=== PATIENT | male | born 1940 | race Caucasian/White ===

== ENCOUNTER 2018-03-30 22:04 | Inpatient (IN) | payer OTHER ==
[~2018-03-30] VITALS: Ht 177.8 cm; Wt 82.6 kg
[~2018-03-30 22:04] MED LIST: AMARYL 2 MG PO; AMLODIPINE BES2.5 MG; ATORVASTATIN CA40 MG; BUDESONIDE0.5 MG/2 M; CIPRO500 MG; CLARITIN PO; COUMAdin PO; Cordarone 200 MG TAB PO; DIOVAN40 MG; FUROSEMIDE40 MG; HumaLOG 100 UNIT/1 ML (3ML) SUBCUTANEO; IOPHEN DM-100 MG/5 M PO; LACTULOSE PO; LUBRIDERM LOTION TP; Lipitor 40MG PO; MERREM IV; MOM PO; MONTELUKAST SOD10 MG; MOXIFLOXACIN 400 MG IV; NEURONTIN300 MG; Norvasc 2.5 MG TAB PO; PERFOROMIS20 MCG/2 M; POM (MEDICAMENTO EN PHA) PO; PROCRIT 10000 UNIT SUBCUTANEO; Pulmicort 0.5 MG/2 ML AMPUL IH; SPIRONOLACTONE25 MG; SUSTIVA 600 MG PO; Singulair 10MG PO; TRUVADA 200 MG-300 MG TABLET PO; Toprol Xl 50MG TAB PO; VANCOCIN 1GM/VIALMATE IV; VANCOCIN HCL 5 MG/ML REDILUIDO IV; VANCOCIN HCL 500 MG IV; Xopenex 0.63 MG/3 ML SOLUTION IH
[2018-03-30] MEDS ORDERED: ATORVASTATIN CA10 MG (22:13)
[2018-03-30] MEDS ORDERED: CETIRIZINE HCL10 MG (22:13)
[2018-03-30] MEDS ORDERED: DAFLONEX-XL TA1 EACH (22:13)
[2018-03-30] MEDS ORDERED: FUROSEMIDE40 MG (22:14)
[2018-03-30] MEDS ORDERED: TRIGLIDE160 MG (22:14)
[2018-03-30] MEDS ORDERED: IPRAT-ALBUT 0.5-3 ML (22:15)
[2018-03-30] MEDS ORDERED: JANUVIA25 MG (22:15)
[2018-03-30] MEDS ORDERED: GABAPENTIN100 MG (22:15)
[2018-03-30] MEDS ORDERED: MECLIZINE HCL25 MG (22:16)
[2018-03-30] MEDS ORDERED: LIPO-FLAVONOID1 EACH (22:16)
[2018-03-30] MEDS ORDERED: STIOLTO RESPIMAT4 GM (22:17)
[2018-03-30] MEDS ORDERED: PENTOXIFYLLINE400 MG (22:17)
[2018-03-30] MEDS ORDERED: SPIRIVA RESPIMAT4 G1 (22:17)
[2018-03-30] MEDS ORDERED: TAMS0.4C (22:18)
[2018-03-30] MEDS ORDERED: TRUVADA 200 MG1 EACH (22:18)
[2018-03-30] MEDS ORDERED: SUSTIVA50 MG (22:18)
[2018-03-30] MEDS ORDERED: ELIQUIS5 MG (22:27)
[2018-03-30] MEDS ORDERED: LEVAQUIN750 MG (22:29)
[2018-04-01] MEDS ORDERED: TRUVADA 200 MG1 EACH PO (18:04)
== END 2018-04-16 16:51 | disposition home or self-care (01) | DRG 975 ==
LOC: ER 22:04 → SEC-K 03-31 12:45 → MEDJ 03-31 12:45
PROVIDERS: ADMIT Internal Medicine
PROC: 4A033R1 Measurement of Arterial Saturation, Peripheral, Percutaneous Approach (ICD-10-PCS; 2018-03-31)
PROC: 8E0ZXY6 Isolation (ICD-10-PCS; 2018-03-31)
PROC: 4A12X4Z Monitoring of Cardiac Electrical Activity, External Approach (ICD-10-PCS; 2018-03-31)
PROC: 3E0F7GC Introduction of Other Therapeutic Substance into Respiratory Tract, Via Natural or Artificial Opening (ICD-10-PCS; 2018-03-31)
PROC: B922ZZZ Computerized Tomography (CT Scan) of Paranasal Sinuses (ICD-10-PCS; principal; 2018-04-01)
PROC: BW24ZZZ Computerized Tomography (CT Scan) of Chest and Abdomen (ICD-10-PCS; 2018-04-01)
DX: J10.08 Influenza due to other identified influenza virus with other specified pneumonia (principal); L03.116 Cellulitis of left lower limb; B20 Human immunodeficiency virus [HIV] disease; I25.810 Atherosclerosis of coronary artery bypass graft(s) without angina pectoris; D68.312 Antiphospholipid antibody with hemorrhagic disorder; D68.311 Acquired hemophilia; M86.8X6 Other osteomyelitis, lower leg; B37.0 Candidal stomatitis; B96.3 Hemophilus influenzae [H. influenzae] as the cause of diseases classified elsewhere; J44.1 Chronic obstructive pulmonary disease with (acute) exacerbation; Z79.4 Long term (current) use of insulin; Z95.1 Presence of aortocoronary bypass graft; Z87.891 Personal history of nicotine dependence; E11.51 Type 2 diabetes mellitus with diabetic peripheral angiopathy without gangrene; R09.02 Hypoxemia; E11.22 Type 2 diabetes mellitus with diabetic chronic kidney disease; I12.9 Hypertensive chronic kidney disease with stage 1 through stage 4 chronic kidney disease, or unspecified chronic kidney disease; N18.2 Chronic kidney disease, stage 2 (mild); E11.65 Type 2 diabetes mellitus with hyperglycemia; D51.8 Other vitamin B12 deficiency anemias; J14 Pneumonia due to Hemophilus influenzae

== ENCOUNTER 2023-02-07 11:01 | Outpatient (CLI) | payer OTHER ==
[~2023-02-07 11:01] MED LIST changes: +ATORVASTATIN CA10 MG; +CETIRIZINE HCL10 MG; +DAFLONEX-XL TA1 EACH; +ELIQUIS5 MG; +GABAPENTIN100 MG; +IPRAT-ALBUT 0.5-3 ML; +JANUVIA25 MG; +LEVAQUIN750 MG; +LIPO-FLAVONOID1 EACH; +MECLIZINE HCL25 MG; +PENTOXIFYLLINE400 MG; +SPIRIVA RESPIMAT4 G1; +STIOLTO RESPIMAT4 GM; +SUSTIVA50 MG; +TAMS0.4C; +TRIGLIDE160 MG; +TRUVADA 200 MG1 EACH; +TRUVADA 200 MG1 EACH PO
== END 2023-02-07 11:08 | disposition home or self-care (01) ==
LOC: RAD 11:01
PROVIDERS: ATTEND Internal Medicine
DX: J44.9 Chronic obstructive pulmonary disease, unspecified (principal); Z16.13 Resistance to carbapenem; Z88.0 Allergy status to penicillin; Z88.1 Allergy status to other antibiotic agents; Z88.2 Allergy status to sulfonamides

== ENCOUNTER → 2024-12-05 | Emergency (ER) | payer OTHER ==
[~2024-12-05] VITALS: Ht 172.7 cm; Wt 87.1 kg
[~2024-12-05] MED LIST changes: +ELIQUIS5 M1 PO; +KETOROLAC TROMETHAMINE 30 MG VIAL IV ONE; +KETOROLAC TROMETHAMINE 30 MG VIAL ONE
[2024-12-05 12:16] LABS: BASO % 0.5 % (0.1-1.2); EOS # 0.00 (0.04-0.54); EOS % 0.0 % (0.7-7.0); LYMPH # 1.35 (1.18-3.74); LYMPH % 16.5 % (19.3-53.1); MEAN PLATELET VOLUME 9.60 fl (9.4-12.4); MONO # 0.52 (0.24-0.82); MONO % 6.3 % (4.7-12.5); NEUT # 6.23 (1.56-6.13); NEUT % 76.0 % (34.0-71.1); RED CELL DISTRIBUTION WIDTH 13.8 % (11.6-14.4)
[2024-12-05 12:58] LABS: BUN CREA RATIO 9.0 (7.0-25.0); CREATININE SERUM 3.75 mg/dL (0.70-1.30); GFR 15.45; GLUCOSE FASTING 129.0 mg/dL (65-100); OSMOLALITY SERUM 298.0 MOSM/KG (275-295)
[2024-12-06 04:23] LABS: URINE APPEARANCE Clear; URINE BILIRRUBIN Negative (NEGATIVE); URINE BLOOD Negative; URINE COLOR Yellow; URINE GLUCOSE Negative (NEGATIVE); URINE KETONE Trace (NEGATIVE); URINE LEUKOCYTE Negative; URINE NITRATE Negative; URINE PROTEIN Negative (NEGATIVE); URINE UROBILINOGEN 1.0 E.U./dl
[2024-12-06 04:27] LABS: URINE BACTERIA 9.5 uL (0.0-1933); URINE EPITHELIAL CELLS 2.3 uL (0.0-38.8); URINE WBC 1.9 uL (0.0-23.2)
[2024-12-06 05:44] LABS: URINE CAST 0.43 uL (0.0-1.40); URINE RBC 1.0 uL (0.0-20.8)
== END | disposition designated cancer center or children's hospital (05) ==
LOC: ER 10:49
PROVIDERS: Emergency Medicine
DX: S79.811A Other specified injuries of right hip, initial encounter (principal); W19.XXXA Unspecified fall, initial encounter; Y93.89 Activity, other specified; Y92.89 Other specified places as the place of occurrence of the external cause; Y99.8 Other external cause status; I10 Essential (primary) hypertension; Z88.0 Allergy status to penicillin; Z88.1 Allergy status to other antibiotic agents; Z88.2 Allergy status to sulfonamides
CPT/HCPCS: 71046; 73502; 96365; 99285; J1885

== ENCOUNTER 2025-02-11 11:41 | Inpatient (IN) | payer OTHER ==
[~2025-02-11] VITALS: Ht 167.6 cm; Wt 65.8 kg
[~2025-02-11 11:41] MED LIST changes: -KETOROLAC TROMETHAMINE 30 MG VIAL IV ONE; -KETOROLAC TROMETHAMINE 30 MG VIAL ONE
[2025-02-11] MEDS ORDERED: VANCOMYCIN HCL 1,000 MG VIAL IV ONE (12:15)
[2025-02-11] MEDS ORDERED: FAMOtidine 10 MG/ML (4ML VIAL) IV SCH (12:15)
[2025-02-11] MEDS ORDERED: LEVALBUTEROL HCL 1.25 MG/3 ML SOLUTION IH SCH (12:16)
--- NOTE | 2025-02-11 12:24 | NUR ---
PACIENTE MASCULINO, S/V EN PARAMETROS NORMNALES, C/C ULCERA PIE DERECHO, SE UBICA EN CAMA 11 PARA SER EVALUADO.
[2025-02-11] MEDS ORDERED: DEXTROSE 50 % IN WATER 0.5 G/ML DISP.SYRIN IV PRN (12:30)
[2025-02-11] MEDS ORDERED: 0.9 % SODIUM CHLORIDE 1,000 ML IV SCH (12:30)
[2025-02-11] MEDS ORDERED: INSULIN LISPRO 1,000 UNIT/10 ML UNITS SUBCUTANEO PRN (12:30)
[2025-02-11] MEDS ORDERED: VANCOMYCIN HCL 1,000 MG VIAL ONE (14:57)
[2025-02-11] MEDS ORDERED: FAMOTIDINE/PF 20 MG/2 ML VIAL ONE (14:57)
[2025-02-11 15:41] LABS: BASO % 0.4 % (0.1-1.2); EOS # 0.05 (0.04-0.54); EOS % 0.5 % (0.7-7.0); LYMPH # 2.22 (1.18-3.74); LYMPH % 21.2 % (19.3-53.1); MEAN PLATELET VOLUME 10.00 fl (9.4-12.4); MONO # 0.80 (0.24-0.82); MONO % 7.7 % (4.7-12.5); NEUT # 7.25 (1.56-6.13); NEUT % 69.3 % (34.0-71.1); RED CELL DISTRIBUTION WIDTH 15.9 % (11.6-14.4)
[2025-02-11 15:53] VITALS: BP 130/80
[2025-02-11 15:59] LABS: INR 1.16
[2025-02-11 16:13] LABS: ALT/SGPT 20.0 U/L (12-78); AST/SGOT 12.0 U/L (15-37); BILIRUBIN TOTAL 0.43 mg/dL (0.3-1.2); BUN CREA RATIO 7.0 (7.0-25.0); CREATININE SERUM 3.4 mg/dL (0.70-1.30); GFR 17.3; GLOBULINA 4.3 G/DL (2.4-3.5); GLUCOSE FASTING 145.0 mg/dL (65-100); OSMOLALITY SERUM 288.0 MOSM/KG (275-295)
[2025-02-11] MEDS ORDERED: ACETAMINOPHEN 325 MG TABLET PO PRN (16:30)
[2025-02-11] MEDS ORDERED: IPRATROPIUM BROMIDE 0.5 MG/2.5 ML AMPUL.NEB IH SCH (17:00)
[2025-02-11] MEDS ORDERED: ACETAMINOPHEN 500 MG GEL..CAP PO PRN (18:30)
[2025-02-11 20:21] LABS: URINE APPEARANCE Turbid; URINE BILIRRUBIN Negative (NEGATIVE); URINE BLOOD Large; URINE COLOR Yellow; URINE KETONE Negative (NEGATIVE); URINE LEUKOCYTE Large; URINE NITRATE Negative; URINE UROBILINOGEN 0.2 E.U./dl
[2025-02-11 20:25] LABS: URINE BACTERIA 4905.5 uL (0.0-1933); URINE CAST 4.83 uL (0.0-1.40); URINE EPITHELIAL CELLS 5.0 uL (0.0-38.8); URINE RBC 424.7 uL (0.0-20.8); URINE WBC 823.5 uL (0.0-23.2)
[2025-02-11 20:40] LABS: URINE GLUCOSE 250 MG/DL (NEGATIVE); URINE PROTEIN 100 (NEGATIVE); URINE YEAST MANY /hpf
[2025-02-11 21:53] VITALS: BP 181/72
[2025-02-12 03:29] VITALS: BP 145/62; O2SAT 96
[2025-02-12 08:40] VITALS: BP 150/72; O2SAT 97
[2025-02-12] MEDS ORDERED: FAMOTIDINE/PF 20 MG/2 ML VIAL IV SCH (09:00)
[2025-02-12] MEDS ORDERED: LINEZOLID IN DEXTROSE 5% 300 ML IV SCH (09:00)
[2025-02-12] MEDS ORDERED: AZTREONAM 1,000 MG VIAL IV SCH (09:00)
[2025-02-12] MEDS ORDERED: VANCOMYCIN HCL 1,000 MG VIAL IV NR (16:00)
[2025-02-12] MEDS ORDERED: MEROPENEM 500 MG/VIAL VIAL IV SCH (17:00)
[2025-02-12 18:47] VITALS: BP 130/66
[2025-02-13 04:30] VITALS: BP 133/56; O2SAT 96
[2025-02-13] MEDS ORDERED: LEVALBUTEROL HCL 1.25 MG/3 ML SOLUTION IH SCH (06:00)
[2025-02-13] MEDS ORDERED: IPRATROPIUM BROMIDE 0.5 MG/2.5 ML AMPUL.NEB IH SCH (06:00)
[2025-02-13 08:52] VITALS: BP 131/78; O2SAT 96
[2025-02-13] MEDS ORDERED: VANCOMYCIN HCL 500 MG VIAL IV SCH (09:00)
[2025-02-13 18:07] VITALS: BP 113/73
[2025-02-14 02:51] VITALS: BP 114/62; O2SAT 97
[2025-02-14 06:18] LABS: BASO % 0.6 % (0.1-1.2); EOS # 0.00 (0.04-0.54); EOS % 0.0 % (0.7-7.0); LYMPH # 2.31 (1.18-3.74); LYMPH % 23.2 % (19.3-53.1); MEAN PLATELET VOLUME 10.70 fl (9.4-12.4); MONO # 0.68 (0.24-0.82); MONO % 6.8 % (4.7-12.5); NEUT # 6.85 (1.56-6.13); NEUT % 68.7 % (34.0-71.1); RED CELL DISTRIBUTION WIDTH 15.9 % (11.6-14.4)
[2025-02-14 07:01] LABS: ALT/SGPT 16.0 U/L (12-78); AST/SGOT 13.0 U/L (15-37); BILIRUBIN TOTAL 0.36 mg/dL (0.3-1.2); BUN CREA RATIO 7.0 (7.0-25.0); CREATININE SERUM 3.71 mg/dL (0.70-1.30); GFR 15.64; GLOBULINA 3.6 G/DL (2.4-3.5); GLUCOSE FASTING 91.0 mg/dL (65-100); OSMOLALITY SERUM 282.0 MOSM/KG (275-295)
[2025-02-14 09:11] VITALS: BP 115/64; O2SAT 96
[2025-02-14 20:52] VITALS: BP 127/66; O2SAT 97
[2025-02-15 01:04] VITALS: BP 100/50; O2SAT 98
[2025-02-15 10:05] VITALS: BP 144/62; O2SAT 97
[2025-02-15 19:00] VITALS: BP 144/57; O2SAT 98
[2025-02-16 03:28] VITALS: BP 148/74; O2SAT 95
[2025-02-16] MEDS ORDERED: VANCOMYCIN HCL 500 MG VIAL IV SCH (09:00)
[2025-02-16 10:41] VITALS: BP 171/64; O2SAT 96
[2025-02-16 20:13] VITALS: BP 122/70; O2SAT 96
[2025-02-17 03:14] VITALS: BP 160/76; O2SAT 95
[2025-02-17 10:11] VITALS: BP 101/60; O2SAT 97
[2025-02-17 16:07] LABS: BASO % 0.5 % (0.1-1.2); EOS # 0.09 (0.04-0.54); EOS % 1.0 % (0.7-7.0); LYMPH # 2.25 (1.18-3.74); LYMPH % 24.2 % (19.3-53.1); MEAN PLATELET VOLUME 10.30 fl (9.4-12.4); MONO # 0.74 (0.24-0.82); MONO % 8.0 % (4.7-12.5); NEUT # 6.08 (1.56-6.13); NEUT % 65.5 % (34.0-71.1); RED CELL DISTRIBUTION WIDTH 15.7 % (11.6-14.4)
[2025-02-17 16:42] LABS: ALT/SGPT 13.0 U/L (12-78); AST/SGOT 12.0 U/L (15-37); BILIRUBIN TOTAL 0.36 mg/dL (0.3-1.2); BUN CREA RATIO 6.0 (7.0-25.0); CREATININE SERUM 3.74 mg/dL (0.70-1.30); GFR 15.5; GLOBULINA 3.6 G/DL (2.4-3.5); GLUCOSE FASTING 121.0 mg/dL (65-100); OSMOLALITY SERUM 280.0 MOSM/KG (275-295)
[2025-02-17] MEDS ORDERED: SOD FERRIC GLUC COMPLX/SUCROSE 62.5 MG in 0.9 % SODIUM CHLORIDE 50 ML IV SCH (17:00)
[2025-02-17] MEDS ORDERED: CYANOCOBALAMIN (VITAMIN B-12) 1,000 MCG/ML VIAL IM SCH (17:00)
[2025-02-17] MEDS ORDERED: FOLIC ACID 1 MG TABLET PO SCH (17:00)
[2025-02-17 17:26] VITALS: BP 126/80; O2SAT 98
[2025-02-18 02:58] VITALS: BP 149/67; O2SAT 95
[2025-02-18 08:26] VITALS: BP 134/69; O2SAT 97
[2025-02-18 20:24] VITALS: BP 120/55; O2SAT 95
[2025-02-19 03:21] VITALS: BP 133/55; O2SAT 96
[2025-02-19 09:04] VITALS: BP 126/72; O2SAT 97
== END 2025-02-19 13:47 | disposition designated cancer center or children's hospital (05) | DRG 622 ==
LOC: ER 11:41 → MEDJ 16:51
PROVIDERS: General Practice; Internal Medicine Infectious Disease; Internal Medicine Nephrology; ADMIT Internal Medicine; ATTEND Internal Medicine
PROC: 0JBQ0ZZ Excision of Right Foot Subcutaneous Tissue and Fascia, Open Approach (ICD-10-PCS; principal; 2025-02-11)
PROC: 0JBQ0ZZ Excision of Right Foot Subcutaneous Tissue and Fascia, Open Approach (ICD-10-PCS; 2025-02-12)
PROC: 3E0F7GC Introduction of Other Therapeutic Substance into Respiratory Tract, Via Natural or Artificial Opening (ICD-10-PCS; 2025-02-12)
PROC: BQ3DZZZ Magnetic Resonance Imaging (MRI) of Right Lower Leg (ICD-10-PCS; 2025-02-13)
PROC: 5A1D70Z Performance of Urinary Filtration, Intermittent, Less than 6 Hours Per Day (ICD-10-PCS; 2025-02-13)
PROC: 5A1D70Z Performance of Urinary Filtration, Intermittent, Less than 6 Hours Per Day (ICD-10-PCS; 2025-02-14)
PROC: 0JBQ0ZZ Excision of Right Foot Subcutaneous Tissue and Fascia, Open Approach (ICD-10-PCS; 2025-02-15)
PROC: 5A1D70Z Performance of Urinary Filtration, Intermittent, Less than 6 Hours Per Day (ICD-10-PCS; 2025-02-16)
PROC: 5A1D70Z Performance of Urinary Filtration, Intermittent, Less than 6 Hours Per Day (ICD-10-PCS; 2025-02-18)
DX: E11.621 Type 2 diabetes mellitus with foot ulcer (principal); D66 Hereditary factor VIII deficiency; L89.613 Pressure ulcer of right heel, stage 3; N18.6 End stage renal disease; L03.115 Cellulitis of right lower limb; B20 Human immunodeficiency virus [HIV] disease; I25.810 Atherosclerosis of coronary artery bypass graft(s) without angina pectoris; I13.11 Hypertensive heart and chronic kidney disease without heart failure, with stage 5 chronic kidney disease, or end stage renal disease; B96.5 Pseudomonas (aeruginosa) (mallei) (pseudomallei) as the cause of diseases classified elsewhere; E11.22 Type 2 diabetes mellitus with diabetic chronic kidney disease; J44.9 Chronic obstructive pulmonary disease, unspecified; F17.201 Nicotine dependence, unspecified, in remission; Z95.1 Presence of aortocoronary bypass graft; Z88.0 Allergy status to penicillin; Z88.1 Allergy status to other antibiotic agents; Z96.641 Presence of right artificial hip joint; Z89.421 Acquired absence of other right toe(s)
CPT/HCPCS: 73221